=== PATIENT | male | born 1960 | race Caucasian/White ===

== ENCOUNTER 2019-02-01 19:31 | Inpatient (IN) | payer MEDICARE, OTHER ==
[~2019-02-01] VITALS: Ht 182.9 cm; Wt 73.1 kg
--- NOTE | 2019-02-01 19:38 | PHYS DOC ---
Past History Past Medical History: Anxiety, Bipolar, CHF, COPD, Depression, GERD, Hypertension Additional Past Surgical Histo: GI, left ankle Smoking: Non-smoker Alcohol Use: None Drug Use: None Adult General Chief Complaint Chief Complaint: RAPID HEART RATE HPI HPI Patient is a 58-year-old male with a past medical history of heart failure with an external defibrillator that is presenting to the emergency department via EMS for elevated heart rate. Patient states that he was alerted by his defibrillator that he was about to be shocked at home earlier today and he was feeling his palpitations increase. He denies any other complaints. He denies chest pain, SOB, fever, chills, cough, dizziness, and headache. Review of Systems Review of Systems Constitutional: Denies fever or chills Eyes: Denies redness or eye pain HENT: Denies nasal congestion or sore throat Respiratory: Denies cough or shortness of breath Cardiovascular: Denies chest pain, reports palpitations GI: Denies abdominal pain, nausea, or vomiting : Denies dysuria or hematuria Musculoskeletal: Denies back pain or joint pain Integument: Denies rash or skin lesions Neurologic: Denies headache, focal weakness or sensory changes Complete systems were reviewed and found to be within normal limits, except as documented in this note. Physical Exam Physical Exam Constitutional: Well developed, well nourished, no acute distress, non-toxic appearance HENT: Normocephalic, atraumatic, oropharynx moist Eyes: PERRL, EOMI, conjunctiva normal, no discharge Neck: Normal range of motion, no tenderness, supple Cardiovascular: Heart rate tachycardic, regular rhythm, external defibrillator in place. Lungs & Thorax: Bilateral breath sounds clear to auscultation, no wheezing Abdomen: Soft, no tenderness, exploratory laparoscopy scar present Skin: Warm, dry, no erythema, no rash Extremities: No tenderness, ROM intact, no edema Neurologic: Alert and oriented X 3, no focal deficits noted Psychologic: Affect normal, judgement normal EKG EKG EKG #1: SVT at 147BPM with no ST elevations EKG #2: SVT at 163BPM with no ST elevations Course & Med Decision Making Course & Med Decision Making Pertinent Labs reviewed. (See chart for details) Patient is a 58-year-old male with a past medical history of heart failure with an external defibrillator in place that is presenting to the emergency department via EMS for elevated heart rate. Patient was seen and evaluated at bedside. Labs ordered. Interrogation of the defibrillator was obtained from external defibrillator company. Interrogation shows elevated heart rates and SVT. Fluids given. Labs significant for magnesium of 0.8 and slightly elevated BNP. EKG showed SVT at 147 bpm. Repeat EKG shows the same at 163 bpm conducted an hour after the initial. Patient self converted down to 105bpm, Replacement of magnesium given. Patient requiring admission for further evaluation and treatment. Discussed with Dr. Santana (hospitalist) who is in agreement with admission. Discussed findings and plan with patient, who acknowledges understanding and agreement. Dragon Disclaimer Dragon Disclaimer This electronic medical record was generated, in whole or in part, using a voice recognition dictation system. Departure Departure: Impression: Primary Impression: SVT (supraventricular tachycardia) Additional Impression: Hypomagnesemia Disposition: ADMITTED INPATIENT Admitting Physician: Deanna Santana Condition: STABLE Problem Qualifiers NORI CHAN DO Feb 01, 2019 19:38
[2019-02-01] MEDS ORDERED: ASPIRIN 325 MG TABLET PO ONE (19:45)
[2019-02-01] MEDS ORDERED: IV NORMAL SALINE 1,000ML 1,000 ML IV ONE (19:45)
--- NOTE | 2019-02-01 19:47 | EKG ---
[address] [address] Test Date: 2019-02-01 Test Time: 19:40:30 Pat Name: ACOSTA PEDRO Department: Room: Gender: M Director Regulatory Compliance: : 1960 Requested By: NORI CHAN Order Number: [id number] Reading MD: Measurements Intervals [place] Rate: 147 P: -136 OK: 120 QRS: 23 QRSD: 82 T: 66 QT: 278 QTc: 441 Interpretive Statements SUPRAVENTRICULAR TACHYCARDIA T ABNORMALITY IN HIGH LATERAL LEADS ABNORMAL ECG RI6.01 No previous ECG available for comparison
[2019-02-01 20:24] LABS: CALCIUM 7.9 mg/dL (8.5-10.1); CREATININE 0.7 mg/dL (0.7-1.3); GFR 115.4; POTASSIUM 3.9 mmol/L (3.5-5.1)
[2019-02-01 20:38] LABS: BASO # 0.1 x10^3/uL (0.0-0.2); BASO % 1 % (0-3); EOS # 0.1 x10^3/uL (0.0-0.7); EOS % 1 % (0-3); HEMATOCRIT 39.8 % (39.0-53.0); HEMOGLOBIN 13.2 g/dL (13.0-17.5); LYMPH # 1.7 x10^3/uL (1.0-4.8); LYMPH % 20 % (24-48); MEAN CORPUSCULAR HEMOGLOBIN 28 pg (25-35); MEAN CORPUSCULAR HGB CONC 33 g/dL (31-37); MEAN CORPUSCULAR VOLUME 84 fL (79-100); MONO # 0.4 x10^3/uL (0.0-1.1); MONO % 5 % (0-9); NEUT # 6.2 x10^3uL (1.8-7.7); NEUT % 73 % (31-73); PLATELET COUNT 187 x10^3/uL (140-400); RED BLOOD COUNT 4.72 x10^6/uL (4.30-5.70); RED CELL DISTRIBUTION WIDTH 18.2 % (11.5-14.5); WHITE BLOOD COUNT 8.5 x10^3/uL (4.0-11.0)
[2019-02-01 20:40] LABS: ALBUMIN 3.6 g/dL (3.4-5.0); ALBUMIN/GLOBULIN RATIO 0.9 (1.0-1.7); MAGNESIUM 0.8 mg/dL (1.8-2.4); TOTAL BILIRUBIN 0.4 mg/dL (0.2-1.0); TOTAL PROTEIN 7.4 g/dL (6.4-8.2)
[2019-02-01 20:53] LABS: VAL ACID 13 mcg/mL (50-100)
[2019-02-01] MEDS ORDERED: MAGNESIUM SULFATE 2GM 50 ML IV ONE (21:15)
[2019-02-01 21:20] LABS: BARBITURATES NEG (NEG); BENZODIAZEPINES NEG (NEG); BILIRUBIN,URINE NEG (NEG); CANNABINOIDS NEG (NEG); CLARITY,URINE CLEAR; COCAINE NEG (NEG); COLOR,URINE YELLOW; GLUCOSE,URINE NEG (NEG); METHADONE NEG (NEG); OPIATES NEG (NEG); PHENCYCLIDINE NEG (NEG)
[2019-02-01 21:21] LABS: AMPHETAMINE/METHAMPHETAMINE NEG (NEG); BACTERIA,URINE 0 /HPF (0-FEW); NITRITE,URINE NEG (NEG); RBC,URINE OCC /HPF (0-2); SQUAMOUS EPITHELIAL CELL,UR OCC /LPF; UROBILINOGEN,URINE 0.2 mg/dL (0.2 mg/dL); WBC,URINE OCC /HPF (0-4)
[2019-02-01] MEDS ORDERED: ONDANSETRON PF 4 MG/2 ML VIAL. IV PRN (21:30)
[2019-02-01 23:16] VITALS: BP 97/65
--- NOTE | 2019-02-01 23:25 | EKG ---
[address] [address] Test Date: 2019-02-01 Test Time: 20:26:55 Pat Name: ACOSTA PEDRO Department: Room: Gender: M Supervisor Liquid Yeast: : 1960 Requested By: NORI CHAN Order Number: [id number] Reading MD: Measurements Intervals [place] Rate: 163 P: ND: QRS: 31 QRSD: 80 T: 79 QT: 294 QTc: 490 Interpretive Statements SUPRAVENTRICULAR TACHYCARDIA T ABNORMALITY IN HIGH LATERAL LEADS ABNORMAL ECG RI6.01 No previous ECG available for comparison
[2019-02-01] MEDS ORDERED: POTA20TA4 PO (23:44)
[2019-02-01] MEDS ORDERED: FURO40TA4 PO (23:44)
[2019-02-01] MEDS ORDERED: LATA2.5D3 EACHEYE (23:44)
[2019-02-01] MEDS ORDERED: ROPI3TAB4 PO (23:44)
[2019-02-01] MEDS ORDERED: PRAV80TA2 PO (23:44)
[2019-02-01] MEDS ORDERED: HYDR25SU18 RC (23:44)
[2019-02-01] MEDS ORDERED: OXYC5TAB4 PO (23:44)
[2019-02-01] MEDS ORDERED: ARIP10TA9 PO (23:44)
[2019-02-01] MEDS ORDERED: OMEP-229 PO (23:44)
[2019-02-01] MEDS ORDERED: DIPH25TA24 PO (23:44)
[2019-02-01] MEDS ORDERED: METH-38 PO (23:44)
[2019-02-01] MEDS ORDERED: PROAIR RESPICL90 MCG IH (23:44)
[2019-02-01] MEDS ORDERED: LORA-254 PO ×2 (23:44)
[2019-02-01] MEDS ORDERED: NICO4GUM42 BC (23:44)
[2019-02-01] MEDS ORDERED: MULT-496 PO (23:44)
[2019-02-01] MEDS ORDERED: LISI-338 PO (23:44)
[2019-02-01] MEDS ORDERED: TAMS0.4C97 PO (23:44)
[2019-02-01] MEDS ORDERED: SPIR25TA5 PO (23:44)
[2019-02-01] MEDS ORDERED: BISO5TAB4 PO (23:44)
[2019-02-01] MEDS ORDERED: [UNRECOGNIZED DRUG - CODE] PO (23:44)
[2019-02-01] MEDS ORDERED: NALO4SPR NS (23:44)
[2019-02-01] MEDS ORDERED: DIVA500T17 PO (23:44)
[2019-02-01] MEDS ORDERED: LIDO700A21 TP (23:44)
[2019-02-02 03:19] VITALS: BP 96/59
[2019-02-02] MEDS ORDERED: IV NORMAL SALINE 500ML 500 ML IV STA (07:06)
[2019-02-02] MEDS ORDERED: dilTIAZem VIAL 125 MG in IV DEXTROSE 5% 100 ML IV PRN (07:15)
[2019-02-02] MEDS ORDERED: DIGOXIN IV 500 MCG/2 ML AMPUL. IV ONE (07:45)
[2019-02-02 07:51] LABS: BASO % 1 % (0-3); EOS # 0.1 x10^3/uL (0.0-0.7); EOS % 2 % (0-3); HEMATOCRIT 36.7 % (39.0-53.0); HEMOGLOBIN 12.1 g/dL (13.0-17.5); LYMPH % 14 % (24-48); MEAN CORPUSCULAR HEMOGLOBIN 28 pg (25-35); MEAN CORPUSCULAR HGB CONC 33 g/dL (31-37); MEAN CORPUSCULAR VOLUME 84 fL (79-100); MONO # 0.4 x10^3/uL (0.0-1.1); MONO % 5 % (0-9); NEUT # 5.7 x10^3uL (1.8-7.7); NEUT % 79 % (31-73); PLATELET COUNT 184 x10^3/uL (140-400); RED BLOOD COUNT 4.36 x10^6/uL (4.30-5.70); RED CELL DISTRIBUTION WIDTH 18.2 % (11.5-14.5); WHITE BLOOD COUNT 7.2 x10^3/uL (4.0-11.0)
--- NOTE | 2019-02-02 07:55 | PDOC2 ---
CARDIAC CONSULT DATE OF CONSULT Date Of Consult DATE: 02/02/19 TIME: 07:53 REASON FOR CONSULT Reason for Consult SVT REFERRING PHYSICIAN Referring Physician Dr. Solo SOURCE Source: Chart review, Patient HPI History of Present Illness This is a 58 yo male who presented secondary to tachycardia and palpitations. Has a history of cardiomyopathy and currently has LifeVest which was placed about a month ago. Follows with [facility]; machine set up technician Dr. Sandoval. Last night was about to get into the bathtub. LifeVest alarm sounded and patient could tell his heart was beating fast. No associated chest pain, palpitation, dizziness, diaphoresis, or nausea/vomiting. Called [facility] who reported his device was alarming due to HR > 150 bmp. Was referred to the ED for further evaluation and treatment. Was noted in SVT upon arrival with HR. Was given IV fluid bolus. Mg level at 0.8 and was given 2Gm. Is somewhat of a poor historian. Reports baseline heart rate mildly elevated. Reports compliance with medications. Bisoprolol noted on med list, but patient thinks this may be been discontinued but is unsure. Reports his machine set up technician changed some of his medications recently. Reports having previous stress test at the [facility], but no cardiac catheterization although cath without intervention in listed in his medical history. Denies any recent fevers or illness. Has lasix PRN for fluid retention. Not some mild edema and had slight weight gain over the weekend so he took lasix 40mg BID x 2 days. His edema resolved and weight returned back to baseline. PAST MEDICAL HISTORY Cardiovascular: CHF, HTN, hyperipidemia Pulmonary: COPD GI: GERD Hepatobiliary: Hep A/B/C (C) Psych: Anxiety, Depression Renal/: Acute renal failure, Benign prostatic enlarg. PAST SURGICAL HISTORY Past Surgical History: Tonsillectomy, Colon Resection, Other (jaw surgery ) FAMILY HISTORY Family History: Coronary Artery Disease (father ) SOCIAL HISTORY Smoke: 1 pack per day ALCOHOL: none Drugs: None Lives: Alone CURRENT MEDICATIONS Current Medications Current Medications Aspirin (Camila Aspirin) 325 mg 1X ONCE PO Last administered on 02/01/19at 19:45; Start 02/01/19 at 19:45; Stop 02/01/19 at 20:24; Status DC Sodium Chloride 1,000 ml @ 1,000 mls/hr 1X ONCE IV Last administered on 02/01/19at 19:45; Start 02/01/19 at 19:45; Stop 02/01/19 at 20:44; Status DC Lorazepam (Ativan Inj) 0.5 mg 1X ONCE IVP Last administered on 02/01/19at 20:38; Start 02/01/19 at 20:45; Stop 02/01/19 at 20:46; Status DC Magnesium Sulfate 50 ml @ 25 mls/hr 1X ONCE IV Last administered on 02/01/19at 21:15; Start 02/01/19 at 21:15; Stop 02/01/19 at 23:14; Status DC Ondansetron HCl (Zofran) 4 mg PRN Q4HRS PRN IV NAUSEA/VOMITING; Start 02/01/19 at 21:30; Stop 02/02/19 at 21:29 Sodium Chloride 500 ml @ 0 mls/hr 1X STAT IV ; Start 02/02/19 at 07:06; Stop 02/02/19 at 07:25; Status DC Diltiazem HCl 125 mg/Dextrose 125 ml @ 0 mls/hr CONT PRN IV SEE I/O RECORD; Start 02/02/19 at 07:15 Digoxin (Lanoxin) 125 mcg 1X ONCE IV ; Start 02/02/19 at 07:45; Stop 02/02/19 at 07:46; Status DC Active Scripts Active Reported Proair Respiclick (Albuterol Sulfate) 90 Mcg Aer.pow.ba 2 Puff IH PRN Q6HRS PRN Klor-Con M20 (Potassium Chloride) 20 Meq Tab.er.prt 40 Meq PO DAILY08 Ativan (Lorazepam) 1 Mg Tablet 1 Mg PO HS Flomax (Tamsulosin Hcl) 0.4 Mg Cap.er.24h 0.4 Mg PO DAILY Spironolactone 25 Mg Tablet 25 Mg PO DAILY Ropinirole Hcl 3 Mg Tablet 3 Mg PO HS Pravastatin Sodium 80 Mg Tablet 80 Mg PO HS Oxycodone Hcl Immed.release (Oxycodone Hcl) 5 Mg Tablet 5 Mg PO PRN Q6HRS PRN Omeprazole 20 Mg Capsule.dr 20 Mg PO BIDACBL Glucerna 1.5 Travon Liquid (Nut.tx.gluc Intol,Lf,Soy/Fiber) 237 Ml Liquid 237 Ml PO BIDACBL Nicotine Gum (Nicotine Polacrilex) 4 Mg Gum 4 Mg BC PRN Q8HRS PRN Narcan (Naloxone HCl) 4 Mg Lavelle 4 Mg NS PRN DAILY PRN Daily Value (Multivitamin) 1 Each Tablet 1 Each PO DAILY Robaxin-750 (Methocarbamol) 750 Mg Tablet 750 Mg PO Q8HRS Ativan (Lorazepam) 1 Mg Tablet 1 Mg PO PRN DAILY PRN Lisinopril 5 Mg Tablet 5 Mg PO HS Lidocaine PATCH (Lidocaine) 1 Each Adh..patch 1 Each TP DAILY REMOVE AFTER 12 HOURS Latanoprost 2.5 Ml Drops 1 Drop EACHEYE QHS Anusol-Hc (Hydrocortisone Acetate) 25 Mg Supp.rect 25 Mg RC PRN BID PRN Furosemide 40 Mg Tablet 40 Mg PO BID92 Divalproex Sodium Er (Divalproex Sodium) 500 Mg Tab.er.24h 500 Mg PO HS Diphenhydramine Hcl 25 Mg Tablet 25 Mg PO PRN BID PRN Bisoprolol Fumarate 5 Mg Tablet 5 Mg PO DAILY Abilify (Aripiprazole) 10 Mg Tablet 10 Mg PO DAILY ALLERGIES Allergies: Coded Allergies: Penicillins (Verified Allergy, Unknown, 02/01/19) citalopram (Verified Allergy, Unknown, 02/01/19) lithium (Verified Allergy, Unknown, 02/01/19) simvastatin (Verified Allergy, Unknown, 02/01/19) ROS Review of Systems 14 point ROS conducte PHYSICAL EXAM General: Alert, Oriented X3, Cooperative, No acute distress HEENT: Atraumatic, Mucous membr. moist/pink Lungs: Clear to auscultation, Normal air movement Heart: Other (ST rate 130) Abdomen: Soft, No tenderness Extremities: No edema, Normal pulses Skin: No rashes, No breakdown Neuro: Sensation intact Psych/Mental Status: Mental status NL, Other (flat affect ) MUSCULOSKELETAL: Osteoarthritic changes both hands VITALS Vital Signs Vital Signs Date Time Temp Pulse Resp B/P (MAP) Pulse Ox O2 Delivery O2 Flow Rate FiO2 02/02/19 03:19 94 20 96/59 (71) 93 Room Air 02/01/19 23:16 97.3 01/31/19 23:45 2.0 LABS LABS Laboratory Tests Test 02/01/19 20:01 02/01/19 20:44 02/02/19 00:40 02/02/19 03:30 White Blood Count 8.5 x10^3/uL (4.0-11.0) Red Blood Count 4.72 x10^6/uL (4.30-5.70) Hemoglobin 13.2 g/dL (13.0-17.5) Hematocrit 39.8 % (39.0-53.0) Mean Corpuscular Volume 84 fL (79-100) Mean Corpuscular Hemoglobin 28 pg (25-35) Mean Corpuscular Hemoglobin Concent 33 g/dL (31-37) Red Cell Distribution Width 18.2 % (11.5-14.5) Platelet Count 187 x10^3/uL (140-400) Neutrophils (%) (Auto) 73 % (31-73) Lymphocytes (%) (Auto) 20 % (24-48) Monocytes (%) (Auto) 5 % (0-9) Eosinophils (%) (Auto) 1 % (0-3) Basophils (%) (Auto) 1 % (0-3) Neutrophils # (Auto) 6.2 x10^3uL (1.8-7.7) Lymphocytes # (Auto) 1.7 x10^3/uL (1.0-4.8) Monocytes # (Auto) 0.4 x10^3/uL (0.0-1.1) Eosinophils # (Auto) 0.1 x10^3/uL (0.0-0.7) Basophils # (Auto) 0.1 x10^3/uL (0.0-0.2) Prothrombin Time 11.0 SEC (9.4-11.4) Prothromb Time International Ratio 1.1 (0.9-1.1) Activated Partial Thromboplast Time 26 SEC (23-33) Sodium Level 136 mmol/L (136-145) Potassium Level 3.9 mmol/L (3.5-5.1) Chloride Level 99 mmol/L (98-107) Carbon Dioxide Level 30 mmol/L (21-32) Anion Gap 7 (6-14) Blood Urea Nitrogen 11 mg/dL (8-26) Creatinine 0.7 mg/dL (0.7-1.3) Estimated GFR (Cockcroft-Gault) 115.4 BUN/Creatinine Ratio 16 (6-20) Glucose Level 82 mg/dL (70-99) Calcium Level 7.9 mg/dL (8.5-10.1) Magnesium Level 0.8 mg/dL (1.8-2.4) Total Bilirubin 0.4 mg/dL (0.2-1.0) Aspartate Amino Transf (AST/SGOT) 21 U/L (15-37) Alanine Aminotransferase (ALT/SGPT) 28 U/L (16-63) Alkaline Phosphatase 103 U/L (46-116) Creatine Kinase 101 U/L (39-308) Creatine Kinase MB (Mass) 0.7 ng/mL (0.0-3.6) Creatine Kinase MB Relative Index 0.7 % (0-4) Troponin I Quantitative < 0.017 ng/mL (0-0.055) < 0.017 ng/mL (0-0.055) < 0.017 ng/mL (0-0.055) AG-Htq-S-Type Natriuretic Peptide 798 pg/mL (0-124) Total Protein 7.4 g/dL (6.4-8.2) Albumin 3.6 g/dL (3.4-5.0) Albumin/Globulin Ratio 0.9 (1.0-1.7) Lipase 84 U/L (73-393) Valproic Acid (Depakene) Level 13 mcg/mL (50-100) Valproic Acid Last Dose Date 12/26/10 Valproic Acid Last Dose Time 1111 Ethyl Alcohol Level < 10 mg/dL (0-10) Urine Collection Type Unknown Urine Color Yellow Urine Clarity Clear Urine pH 7.0 Urine Specific [place] 1.015 Urine Protein Neg (NEG-TRACE) Urine Glucose (UA) Neg mg/dL (NEG) Urine Ketones (Stick) Neg mg/dL (NEG) Urine Blood Neg (NEG) Urine Nitrite Neg (NEG) Urine Bilirubin Neg (NEG) Urine Urobilinogen Dipstick 0.2 mg/dL (0.2 mg/dL) Urine Leukocyte Esterase Neg (NEG) Urine RBC Occ /HPF (0-2) Urine WBC Occ /HPF (0-4) Urine Squamous Epithelial Cells Occ /LPF Urine Bacteria 0 /HPF (0-FEW) Urine Opiates Screen Neg (NEG) Urine Methadone Screen Neg (NEG) Urine Barbiturates Neg (NEG) Urine Phencyclidine Screen Neg (NEG) Urine Amphetamine/Methamphetamine Neg (NEG) Urine Benzodiazepines Screen Neg (NEG) Urine Cocaine Screen Neg (NEG) Urine Cannabinoids Screen Neg (NEG) Urine Ethyl Alcohol Neg (NEG) Ionized Calcium 1.02 mmol/L (1.13-1.32) Test 02/02/19 07:36 White Blood Count 7.2 x10^3/uL (4.0-11.0) Red Blood Count 4.36 x10^6/uL (4.30-5.70) Hemoglobin 12.1 g/dL (13.0-17.5) Hematocrit 36.7 % (39.0-53.0) Mean Corpuscular Volume 84 fL (79-100) Mean Corpuscular Hemoglobin 28 pg (25-35) Mean Corpuscular Hemoglobin Concent 33 g/dL (31-37) Red Cell Distribution Width 18.2 % (11.5-14.5) Platelet Count 184 x10^3/uL (140-400) Neutrophils (%) (Auto) 79 % (31-73) Lymphocytes (%) (Auto) 14 % (24-48) Monocytes (%) (Auto) 5 % (0-9) Eosinophils (%) (Auto) 2 % (0-3) Basophils (%) (Auto) 1 % (0-3) Neutrophils # (Auto) 5.7 x10^3uL (1.8-7.7) Lymphocytes # (Auto) 1.0 x10^3/uL (1.0-4.8) Monocytes # (Auto) 0.4 x10^3/uL (0.0-1.1) Eosinophils # (Auto) 0.1 x10^3/uL (0.0-0.7) Basophils # (Auto) 0.0 x10^3/uL (0.0-0.2) ASSESSMENT/PLAN Assessment/Plan 1. SVT; given fluid bolus in ED. 2. Cardiomyopathy. presumed NICM; with current LifeVest. Follows with Dr. Sandoval at the [facility]. 3. Chronic systolic CHF; appears compensated. Lasix PRN for fluid retention at home 4. Hypertension; BP low end. 5. Hyperlipidemia; statin 6. Hypomagnesemia; 0.8- replaced in ED 7. COPD with continued tobaccoism; discussed/encourage cessation 8. H/o hepatitis C Recommendations Dig IV x1 now Recheck Mg; replace as warranted TSH [facility] Cardizem not ideal with CMP. Will start low-dose metoprolol for rate control unless significant wheezing is noted Hold lisinopril for now with marginal BP Will attempt to clarify home med list Further recs pending review of OSH records and med list. MINERVA WILKINSON APRN Feb 02, 2019 07:55
--- NOTE | 2019-02-02 07:59 | RAD ---
CHEST AP ONLY History: Elevated heart rate, shortness of air Comparison: None. Findings: Single view of the chest is submitted. There is no dependent pleural fluid or pneumothorax. Heart size is considered within normal limits. There is no lobar consolidation. Impression: 1. No lobar infiltrate is identified. Electronically signed by: Sanju Anguiano MD (02/02/2019 7:56 AM) [id number]
[2019-02-02 08:14] LABS: ALBUMIN 2.9 g/dL (3.4-5.0); ALBUMIN/GLOBULIN RATIO 0.9 (1.0-1.7); CALCIUM 7.7 mg/dL (8.5-10.1); CREATININE 0.6 mg/dL (0.7-1.3); GFR 137.9; MAGNESIUM 1.4 mg/dL (1.8-2.4); POTASSIUM 3.5 mmol/L (3.5-5.1); TOTAL BILIRUBIN 0.4 mg/dL (0.2-1.0); TOTAL PROTEIN 6.2 g/dL (6.4-8.2)
[2019-02-02] MEDS ORDERED: MAGNESIUM SULFATE 2GM 50 ML IV ONE (08:30)
[2019-02-02] MEDS ORDERED: IPRATRPIUM/ALBUTEROL 0.5/2.5MG 3 ML NEBU. NEB ONE (08:45)
[2019-02-02] MEDS: METOPROLOL TART IMMED RELEASE 25 MG TABLET PO SCH ×3 (09:06→15:06)
[2019-02-02 11:00] VITALS: BP 104/64
[2019-02-02 12:00] VITALS: BP 116/71
[2019-02-02 14:03] VITALS: BP 109/74
[2019-02-02 14:16] LABS: MAGNESIUM 1.8 mg/dL (1.8-2.4); POTASSIUM 3.8 mmol/L (3.5-5.1)
[2019-02-02 14:54] VITALS: BP 115/78
[2019-02-02] MEDS ORDERED: HYDROCORTISONE ACETATE 25 MG SUPP.RECT RC PRN (17:30)
[2019-02-02] MEDS ORDERED: oxyCODONE IR 5 MG TABLET PO PRN (17:30)
[2019-02-02] MEDS ORDERED: NON FORMULARY ITEM (Naloxone HCl (Narcan) 4 MG) NS PRN (17:30)
[2019-02-02] MEDS ORDERED: LORazepam 1 MG TABLET PO PRN (17:30)
[2019-02-02] MEDS ORDERED: NON FORMULARY ITEM (Albuterol Sulfate (Proair Respiclick) 2 PUFF) IH PRN (17:30)
[2019-02-02] MEDS ORDERED: diphenhydrAMINE HCL 25 MG CAPSULE PO PRN (18:15)
[2019-02-02] MEDS ORDERED: NICOTINE POLACRILEX GUM 2 MG GUM. BC PRN (18:15)
[2019-02-02] MEDS ORDERED: ALBUTEROL SULFATE 2.5 MG/3 ML NEBU. NEB PRN (18:30)
[2019-02-02 19:00] VITALS: BP 122/87
[2019-02-02 19:01] LABS: FREE T4 1.28 ng/dL (0.76-1.46); THYROID STIM HORMONE (TSH) 0.383 uIU/mL (0.358-3.740)
--- NOTE | 2019-02-02 19:15 | HP ---
ADMIT DATE: 02/01/2019 HISTORY OF PRESENT ILLNESS: The patient is a 58-year-old male patient who presented to the emergency room with a complaint of tachycardia and palpitation, has a history of cardiomyopathy and currently has a LifeVest which was placed about a month ago, follows with his creative consultant, Dr. Sandoval, at the [facility]. He apparently went into his bathtub and LifeVest alarm sounded and the patient could tell his heart was beating fast. He denied any chest pain, palpitation, dizziness, lightheadedness, nausea or vomiting. He was advised to report to the emergency department for further evaluation and treatment. He was noted to be in SVT upon arrival with a heart rate in the 150, has received an IV bolus. His magnesium was extremely low at 0.8 and was given 2 grams and was admitted to the ICU. He stated that his heart rate at baseline elevated at 100-110. He stated that he has been compliant with all his medications. He has swelling of both legs for which he took his furosemide for 2 consecutive days and the swelling has gone down completely and apparently was treated with IV fluid and aspirin, received magnesium sulfate as well as diltiazem and digoxin and his heart rate has eventually slowed down. PAST MEDICAL HISTORY: Significant for hypertension; congestive heart failure; hyperlipidemia; chronic obstructive pulmonary disease; gastroesophageal reflux disease; hepatitis A, B and C; anxiety and depression; benign prostatic hypertrophy and history of acute renal failure. PAST SURGICAL HISTORY: Significant for tonsillectomy, colon resection with end-to-end anastomosis and jaw surgery. FAMILY HISTORY: Positive for coronary artery disease in his father. SOCIAL HISTORY: He is single, lives alone. He smokes a pack a day, does not drink alcohol or use any recreational drugs. ALLERGIES: He is allergic to PENICILLIN, CITALOPRAM, LITHIUM, and SIMVASTATIN. MEDICATIONS: He is currently on following medications: He is currently on diphenhydramine 25 mg twice a day, albuterol sulfate 2 puffs every 6 hours, tamsulosin 0.4 mg daily, methocarbamol 750 mg every 8 hours, nicotine gum 4 mg every 8 hours, pravastatin sodium 80 mg at bedtime, lisinopril 5 mg once a day, spironolactone 25 mg once a day, oxycodone 5 mg every 6 hours; naloxone for Narcan 4 mg nasal p.r.n. daily, avoid overdose; divalproex sodium 500 mg at bedtime. He is on Abilify 10 mg daily. He is on lorazepam 1 mg daily p.r.n. for anxiety, lorazepam 1 mg at bedtime. He is on Requip 3 mg at bedtime, potassium chloride for Klor-Con 40 mEq once a day. He is on Glucerna 1.5 Travon 237 mL p.o. b.i.d., furosemide 40 mg twice a day as needed, latanoprost 1 drop to both eyes at bedtime. He is on omeprazole 20 mg b.i.d. He is on hydrocortisone acetate 25 mg for Anusol rectally p.r.n. for hemorrhoidal discomfort, lidocaine patch applied topically once a day, multivitamin 1 tablet once a day. PHYSICAL EXAMINATION: GENERAL: On arrival to the emergency room, the patient was somewhat pale, but no jaundice, cyanosis or thyromegaly. No jugular venous distention. No limb edema. VITAL SIGNS: His heart rate was 157, blood pressure was 107/72, temperature was 98.4, respiratory rate was 18 and oxygen saturation was 97% on 2 liters of oxygen. HEAD, EYES, EARS, NOSE AND THROAT: Showed normocephalic, atraumatic. NECK: Supple. HEART: Showed normal first and second heart sounds. No gallop or murmur. CHEST: Clear to auscultation. No crepitation or rhonchi. ABDOMEN: Distended, soft, nontender. NEUROLOGIC: He is awake, alert, responding appropriately. All cranial nerves intact. EXTREMITIES: He moves extremities without difficulty, ambulates without assistance or assistive devices. LABORATORY DATA: His lab work showed a white cell count of 8500, hemoglobin 13, hematocrit 39, MCV 84 and platelet count of 187,000 with normal manual differential. His chemistry showed a serum sodium 136, potassium 3.9, chloride 99, bicarbonate 30, anion gap of 7, BUN 11, creatinine was 0.7, estimated GFR was 115 mL per minute. His glucose was 82, calcium was 7.9, magnesium was 0.8. Total bilirubin, AST, ALT, alkaline phosphatase were normal. CK was 101. Beta natriuretic peptide was 798. Total protein was 7.4, albumin 3.6. Lipase was 84. His prothrombin time, INR and aPTT are normal. Urinalysis essentially unremarkable and toxic screen was essentially negative. IMAGING STUDIES: His chest x-ray showed that single view of the chest is submitted, there is no dependent pleural fluid or pneumothorax, heart size is considered within normal limits. There is no lobar consolidation. ASSESSMENT AND PLAN: The patient was admitted with a diagnosis of supraventricular tachycardia and marked hypomagnesemia. He was treated with magnesium supplementation, intravenous fluid, Ativan as well as aspirin and digoxin and diltiazem drip. We did actually consult the creative consultant to assist with his management. MARLYN ALMAZAN MD DR: LB/kavya JOB#: [id number] / [id number]
[2019-02-02] MEDS ORDERED: ATORVASTATIN CALCIUM 20 MG TABLET PO SCH (21:00)
[2019-02-02] MEDS ORDERED: LATANOPROST 0.005% OPHTH SOLUTION 2.5ML BOTTLE. OU SCH (21:00)
[2019-02-02] MEDS ORDERED: LORazepam 1 MG TABLET PO SCH (21:00)
[2019-02-02] MEDS ORDERED: rOPINIRole 1 MG TABLET. PO SCH (21:00)
[2019-02-02] MEDS ORDERED: LISINOPRIL 5 MG TABLET. PO SCH (21:00)
[2019-02-02] MEDS ORDERED: DIVALPROEX ER 500 MG TAB.ER.24H PO SCH (21:00)
[2019-02-02] MEDS: METHOCARBAMOL 500 MG TABLET PO SCH (21:03)
--- NOTE | 2019-02-03 00:43 | PN ---
DATE: 02/02/2019 SUBJECTIVE: The patient was admitted yesterday with palpitations, tachycardia. The heart rate was 150-160. He was also found to have marked hypomagnesemia and was given magnesium sulfate, IV fluids and also started on a Cardizem drip and digoxin. His heart rate has slowed down. He also was started on metoprolol by the cork pressing machine operator. In fact when I saw him this afternoon, he was sitting on the edge of the bed, eating his dinner comfortably, in no apparent distress. He denied any chest pain, shortness of breath, orthopnea, paroxysmal nocturnal dyspnea. Denied any cough, phlegm or hemoptysis. OBJECTIVE: GENERAL: When I examined him, he was slightly pale, no jaundice or cyanosis. LYMPHATICS: No lymphadenopathy, no thyromegaly. No jugular venous distention. EXTREMITIES: No lower limb edema. VITAL SIGNS: His heart rate was 84, blood pressure was 115/78, temperature was 97.7, respiratory rate 24 and oxygen saturation was 92%. HEAD, EYES, EARS, NOSE AND THROAT: Showed normocephalic, atraumatic. NECK: Supple. HEART: Showed normal first and second heart sounds. No gallop or murmur. CHEST: Shows central trachea, equally reduced expansion, reduced air entry, vesicular sounds. I could not appreciate any crepitation or rhonchi. ABDOMEN: Scaphoid, soft, nontender. NEUROLOGIC: He was awake, alert, responding appropriately. All cranial nerves are intact. He moves extremities without difficulty. His intake and output were incompletely recorded. LABORATORY DATA: Showed a white cell count 7200, hemoglobin 12, hematocrit 36, MCV 84 and platelet count of 184,000. His chemistry showed that his serum sodium was 138, potassium 3.5, chloride 104, bicarbonate 28, anion gap of 6, BUN 8, creatinine 0.6, estimated GFR was 137 mL per minute, his glucose 115, calcium was 7.7, magnesium was 1.8. Total bilirubin, AST, ALT, alkaline phosphatase were normal. Total protein was 6.2, albumin 2.9. ASSESSMENT AND PLAN: 1. Supraventricular tachycardia, responding to treatment. The patient now is within normal sinus rhythm. 2. Severe hypomagnesemia, improved. His serum magnesium was 1.8. 3. Other medical problems include hypertension, this seems to be well controlled; hyperlipidemia; congestive heart failure due to nonischemic cardiomyopathy; chronic obstructive pulmonary disease; gastroesophageal reflux disease; and benign prostatic hypertrophy. We will repeat all his lab works and if he remains stable, he can be discharged home tomorrow. MARLYN ALMAZAN MD DR: LB/kavya JOB#: [id number] / [id number]
[2019-02-03] MEDS: METHOCARBAMOL 500 MG TABLET PO SCH (05:12)
[2019-02-03 07:00] VITALS: BP_SYST 102; BP_SYST 127; BP_DIAS 73; BP_DIAS 74
[2019-02-03 07:01] LABS: CALCIUM 8.3 mg/dL (8.5-10.1); CREATININE 0.6 mg/dL (0.7-1.3); GFR 137.9; MAGNESIUM 1.8 mg/dL (1.8-2.4); POTASSIUM 3.6 mmol/L (3.5-5.1)
[2019-02-03] MEDS ORDERED: NUT TX GLUC INTOL LF SOY PO SCH (07:30)
[2019-02-03] MEDS ORDERED: PANTOPRAZOLE 40 MG TABLET. PO SCH (07:30)
[2019-02-03] MEDS ORDERED: FIBER PO SCH (07:30)
[2019-02-03 08:00] VITALS: BP 119/76
[2019-02-03] MEDS ORDERED: ASPIRIN ENTERIC COATED 81 MG TABLET.DR. PO SCH (08:00)
[2019-02-03] MEDS ORDERED: POTASSIUM CHLORIDE 20 MEQ TABLET.ER. PO SCH (08:00)
[2019-02-03] MEDS: FUROSEMIDE 40 MG TABLET PO SCH ×2 (08:04→12:27)
[2019-02-03] MEDS ORDERED: ARIPiprazole 10 MG TABLET PO SCH (09:00)
[2019-02-03] MEDS ORDERED: METOPROLOL SUCC 24HR ER 50 MG TAB.ER.24H. PO SCH (09:00)
[2019-02-03] MEDS ORDERED: LIDOCAINE (700MG/PATCH) PATCH. TP SCH (09:00)
[2019-02-03] MEDS ORDERED: MULTIVITAMIN with MINERAL TABLET. PO SCH (09:00)
[2019-02-03] MEDS ORDERED: TAMSULOSIN 0.4 MG CAP.ER.24H. PO SCH (09:00)
[2019-02-03] MEDS ORDERED: SPIRONOLACTONE 25 MG TABLET PO SCH (09:00)
[2019-02-03 10:18] VITALS: BP 115/71
[2019-02-03 11:05] VITALS: BP 103/70
[2019-02-03] MEDS ORDERED: LISI2.5T PO (13:26)
[2019-02-03] MEDS ORDERED: SPIR25TA5 PO (13:26)
[2019-02-03] MEDS ORDERED: METO50TA29 PO (13:29)
[2019-02-03 13:38] VITALS: BP 113/70
--- NOTE | 2019-02-03 14:26 | DS ---
DATE OF DISCHARGE: HOSPITAL COURSE: The patient is a 58-year-old male patient who presented to the Emergency Room with a complaint of palpitation. He has LifeVest and apparently it has alarmed when his heart went up to 150. He did not complain of any chest pain or shortness of breath, cough, phlegm or hemoptysis. Denied any chills, rigors or fever. He was evaluated in the Emergency Room, was found to be in paroxysmal supraventricular tachycardia, treated initially with Lopressor at 25 mg. He was seen in consultation by the Cardiology team and he was started on metoprolol succinate. His heart rate reverted back to sinus rhythm at a heart rate in around 80 beats per minute and a decision was made to discharge him home to follow with his business office coordinator at the [facility]. When I examined him this afternoon, he was sitting at the edge of the bed comfortably in no apparent distress. Again, he denied any complaint. PHYSICAL EXAMINATION: GENERAL: On examining him, he was slightly pale, not jaundice, cyanosis or thyromegaly. No jugular venous distension. No limb edema. VITAL SIGNS: His heart rate was 79, blood pressure was 103/70, temperature was 97.7, respiratory rate was 23, and oxygen saturation was 91%. HEAD, EYES, EARS, NOSE AND THROAT: Showed normocephalic, atraumatic. NECK: Supple. HEART: Showed normal first and second heart sounds. No gallop or murmur. CHEST: Clear to auscultation. No crepitation or rhonchi. ABDOMEN: Scaphoid, soft, nontender. NEUROLOGIC: He is awake, alert, responding appropriately. All cranial nerves are intact. He moves extremities without difficulty, ambulates without assistance or assistive devices. His intake was 1115, output was recorded. LABORATORY DATA: His most recent lab work showed a white cell count 7200, hemoglobin 12, hematocrit 36, MCV 84 and platelet count of 184,000. His chemistry showed a serum sodium 137, potassium 3.6, chloride 102, bicarbonate 26, anion gap of 9, BUN 8, creatinine 0.6, estimated GFR was 137 mL per minute. His glucose was 95, calcium was 8.3, magnesium was 1.8. His total protein was 6.2, albumin was 2.9. Serum triglycerides were 73, total cholesterol 112, LDL cholesterol 54, VLDL was 14, and HDL cholesterol of 44, the ratio was 2. His TSH was 0.33, which is well within normal range. His free T4 and free T3 are both within normal range. DISCHARGE MEDICATIONS: He was discharged home to continue on lisinopril 2.5 mg once a day, spironolactone 12.5 mg once a day, albuterol sulfate 2 puffs every 6 hours, aripiprazole for Abilify 10 mg daily, diphenhydramine 25 mg p.o. b.i.d. p.r.n., divalproex 500 mg at bedtime, furosemide 40 mg twice a day as needed for fluid retention, hydrocortisone acetate for Anusol cream 25 mg suppository rectally as needed for hemorrhoidal discomfort, latanoprost 1 drop to both eyes at bedtime for glaucoma, Lidoderm patch applied topically daily on for 12 hours and off for 12 hours, lorazepam 1 mg daily p.r.n. for anxiety, lorazepam, Ativan 1 mg at bedtime, Robaxin 750 mg every 8 hours, multivitamin 1 tablet once a day, naloxone for Narcan 4 mg nasally p.r.n. daily and for opioid overdose, nicotine gum 4 mg every 8 hours as needed for smoking cessation. He is on Glucerna 1.5 calorie liquid 237 mL twice a day, omeprazole 20 mg twice a day, oxycodone immediate release 5 mg every 6 hours, potassium chloride 40 mEq daily, pravastatin 80 mg at bedtime, Requip 3 mg at bedtime and Flomax 0.4 mg at bedtime. FINAL DISCHARGE DIAGNOSES: 1. Supraventricular tachycardia, responded to treatment. The patient is now in normal sinus rhythm now on metoprolol succinate 50 mg once a day. 2. Severe hypomagnesemia, improved. His most recent serum magnesium was 1.8. 3. Other medical problems include: A. Hypertension. B. Hyperlipidemia. C. Congestive heart failure due to ischemic cardiomyopathy. D. Chronic obstructive pulmonary disease. E. Gastroesophageal reflux disease. F. Benign prostatic hypertrophy. The patient will be discharged home to follow with his primary business office coordinator at the [facility]. MARLYN ALMAZAN MD DR: LB/kavya JOB#: [id number] / [id number]
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
== END 2019-02-03 13:51 | disposition home or self-care (01) | DRG 309 ==
LOC: ER 19:31 → 1 SOUTH 21:20 → ICU 22:03
PROVIDERS: ADMIT Internal Medicine; ATTEND Internal Medicine
DX: I47.1 Supraventricular tachycardia (principal); I50.22 Chronic systolic (congestive) heart failure; I42.8 Other cardiomyopathies; E83.42 Hypomagnesemia; I25.5 Ischemic cardiomyopathy; I11.0 Hypertensive heart disease with heart failure; F41.9 Anxiety disorder, unspecified; J44.9 Chronic obstructive pulmonary disease, unspecified; K21.9 Gastro-esophageal reflux disease without esophagitis; F31.9 Bipolar disorder, unspecified; E78.5 Hyperlipidemia, unspecified; N40.0 Benign prostatic hyperplasia without lower urinary tract symptoms; F17.210 Nicotine dependence, cigarettes, uncomplicated; Z60.2 Problems related to living alone; Z88.0 Allergy status to penicillin; Z88.8 Allergy status to other drugs, medicaments and biological substances; Z82.49 Family history of ischemic heart disease and other diseases of the circulatory system
CPT/HCPCS: 36415; 71045; 80048; 80053; 80061; 80164; 80307; 81001; 82330; 82553; 83690; 83735; 83880; 84132; 84439; 84443; 84481; 84484; 85025; 85610; 85730; 93005; 94640; 96361; 96365; 96366; 96375; G0480; J1160; J2060; J3475; J7613; J7620; Q0163; 99285-25; J7030

== ENCOUNTER 2019-05-18 18:28 | Inpatient (IN) | payer MEDICARE, OTHER ==
[~2019-05-18] VITALS: Ht 182.9 cm; Wt 69.7 kg
[~2019-05-18 18:28] MED LIST: ARIP10TA9 PO; BISO5TAB8 PO; DIPH25TA24 PO; DIVA500T17 PO; FURO40TA4 PO; HYDR25SU18 RC; LATA2.5D3 EACHEYE; LIDO700A21 TP; LISI-338 PO; LISI2.5T PO; LORA-254 PO; METH-38 PO; METO50TA29 PO; MULT-496 PO; NALO4SPR NS; NICO4GUM42 PO; OMEP20CA16 PO; OXYC5TAB4 PO; POTA20TA4 PO; PRAV80TA2 PO; PROAIR RESPICL90 MCG IH; ROPI3TAB4 PO; SPIR25TA5 PO; TAMS0.4C97 PO; [UNRECOGNIZED DRUG - CODE] PO
[2019-05-18] MEDS ORDERED: IV RINGERS SOLUTION,LACTATED 1,000 ML IV SCH ×2 (18:35→20:00)
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
[2019-05-18] MEDS ORDERED: ASPIRIN CHEWABLE 81 MG TABLET. PO ONE (19:00)
--- NOTE | 2019-05-18 19:05 | RAD ---
Single view chest dated 05/18/2019. Comparison made to 02/02/2019. CLINICAL INDICATION: Dyspnea. FINDINGS: Single upright portable exam performed. Heart and mediastinal contours are stable. There is a dual lead left subclavian pacer/AICD in place with leads projected to the right atrium and right ventricle, new from prior study. Lungs are somewhat hyperinflated but otherwise clear. No consolidation or pleural effusion. No pneumothorax. IMPRESSION: No acute radiographic abnormality. Electronically signed by: Harsh Garza MD (05/18/2019 7:03 PM) [id number]
[2019-05-18] MEDS ORDERED: IPRATRPIUM/ALBUTEROL 0.5/2.5MG 3 ML NEBU. NEB ONE (19:15)
[2019-05-18] MEDS ORDERED: ACETAMINOPHEN 500 MG TABLET PO ONE (19:15)
[2019-05-18 19:19] LABS: BASO % 1 % (0-3); EOS % 1 % (0-3); HEMOGLOBIN 14.2 g/dL (13.0-17.5); LYMPH # 0.4 x10^3/uL (1.0-4.8); LYMPH % 10 % (24-48); MEAN CORPUSCULAR HEMOGLOBIN 32 pg (25-35); MEAN CORPUSCULAR HGB CONC 34 g/dL (31-37); MEAN CORPUSCULAR VOLUME 94 fL (79-100); MONO % 1 % (0-9); NEUT # 3.6 x10^3uL (1.8-7.7); NEUT % 88 % (31-73); PLATELET COUNT 138 x10^3/uL (140-400); RED BLOOD COUNT 4.48 x10^6/uL (4.30-5.70); RED CELL DISTRIBUTION WIDTH 14.4 % (11.5-14.5); WHITE BLOOD COUNT 4.1 x10^3/uL (4.0-11.0)
[2019-05-18 19:36] LABS: CALCIUM 8.7 mg/dL (8.5-10.1); CREATININE 0.9 mg/dL (0.7-1.3); GFR 86.4; POTASSIUM 4.3 mmol/L (3.5-5.1)
[2019-05-18 19:46] LABS: INFLUENZA A PATIENT NEGATIVE (NEGATIVE); INFLUENZA B PATIENT NEGATIVE (NEGATIVE)
[2019-05-18 19:49] LABS: DIRECT BILIRUBIN 0.1 mg/dL (0.0-0.2); MAGNESIUM 1.1 mg/dL (1.8-2.4); TOTAL BILIRUBIN 0.5 mg/dL (0.2-1.0); TOTAL PROTEIN 7.5 g/dL (6.4-8.2)
[2019-05-18] MEDS ORDERED: IPRATRPIUM/ALBUTEROL 0.5/2.5MG 3 ML NEBU. NEB SCH (20:00)
[2019-05-18] MEDS ORDERED: ONDANSETRON PF 4 MG/2 ML VIAL. IVP PRN (20:00)
[2019-05-18 20:32] LABS: BARBITURATES NEG (NEG); BENZODIAZEPINES NEG (NEG); CANNABINOIDS NEG (NEG); COCAINE NEG (NEG); METHADONE NEG (NEG); OPIATES POS (NEG); PHENCYCLIDINE NEG (NEG)
[2019-05-18 20:35] LABS: AMPHETAMINE/METHAMPHETAMINE NEG (NEG)
[2019-05-18] MEDS ORDERED: MAGNESIUM SULFATE 2GM 50 ML IV ONE (20:45)
[2019-05-18 21:11] LABS: CLARITY,URINE TURBID; COLOR,URINE RED
[2019-05-18 21:12] LABS: BACTERIA,URINE 0 /HPF (0-FEW); RBC,URINE TNTC /HPF (0-2)
[2019-05-18] MEDS ORDERED: CONTRAST GIVEN MC PRN (22:30)
[2019-05-18] MEDS ORDERED: IOHEXOL 350 MG/ML 100 ML VIAL. IV ONE (22:45)
[2019-05-18] MEDS ORDERED: ENOXAPARIN ** NOTE DOSE ** SYRINGE SQ SCH (23:00)
--- NOTE | 2019-05-18 23:28 | RAD ---
INDICATION: Dyspnea and elevated d-dimer COMPARISON: Chest x-ray from January 2019. TECHNIQUE: Axial CT images obtained through the chest. Intravenous contrast utilized. Angiogram 3D images processed per protocol. One or more of the following individualized dose reduction techniques were utilized for this examination: 1. Automated exposure control; 2. Adjustment of the mA and/or kV according to patient size; 3. Use of iterative reconstruction technique. FINDINGS: No evidence of pneumothorax. Couple nodules at right lung apex measuring up to 4 mm. Scattered calcific atherosclerosis. Coronary artery calcific atherosclerosis. No evidence of thoracic aortic aneurysm. Degenerative changes of spine. No embolus in the main, right main or left main pulmonary artery. Pacemaker leads. There are some regions of low density in some of the more peripheral pulmonary arteries. IMPRESSION: No embolus in the main, right main or left main pulmonary artery. There is some regions of low density at more peripheral pulmonary arteries but there is a large amount of artifact and not optimal contrast bolus timing. These regions of low density could be artifactual in nature but this exam is inadequate to exclude a more peripheral embolus. There are couple pulmonary nodules measuring up to about 4 mm. Fleischner Society recommendations for solitary solid lung nodule follow up.: In a low risk patient: <6mm - No follow up required. 6-8mm - 6-[address], then CT at 18-24 months. >8mm - CT at 3 months, PET/CT or tissue sampling. In a high risk patient (history of smoking or other known risk factors): <6mm - Follow up CT at 12 months. 6-8mm - 6-[address], then CT at 18-24 months. >8mm - CT at 3 months, PET/CT or tissue sampling. Fleischner Society recommendations for multiple solid lung nodule follow up.: In a low risk patient: <6mm - No follow up required. 6-8mm - 3-[address], then CT at 18-24 months. >8mm - CT at 3-6 months, then at 18-24 months. PET/CT or tissue sampling based on most suspicious nodule. In a high risk patient (history of smoking or other known risk factors): <6mm - Follow up CT at 12 months. 6-8mm - 3-[address], then CT at 18-24 months. >8mm - CT at 3-6 months, PET/CT or tissue sampling option based on most suspicious nodule. Electronically signed by: Demetrius Farnsworth MD (05/18/2019 11:25 PM) [id number]
[2019-05-18] MEDS ORDERED: ALBUTEROL SULFATE 8GM INHALER. INH PRN (23:30)
--- NOTE | 2019-05-18 23:32 | EKG ---
[address] [address] Test Date: 2019-05-18 Test Time: 18:58:36 Pat Name: ACOSTA PEDRO Department: Room: ICU03 1 Gender: M Engineering Executive: : 1960 Requested By: MAURICIO PANIAGUA Order Number: [id number] Reading MD: Placido Sands MD Measurements Intervals Freedom Rate: 122 P: -35 NH: 130 QRS: 31 QRSD: 78 T: 74 QT: 266 QTc: 380 Interpretive Statements SINUS TACHYCARDIA Electronically Signed On 05-19-2019 10:27:55 CDT by Placido Sands MD
[2019-05-19] VITALS (8 sets, daily range): BP systolic 106–133; BP diastolic 69–77
[2019-05-19] MEDS ORDERED: METO200T46 PO (05:01)
[2019-05-19] MEDS ORDERED: MELA3TAB4 PO (05:01)
[2019-05-19] MEDS ORDERED: ZINC57OI TP (05:01)
[2019-05-19] MEDS ORDERED: ACET325T21 PO (05:01)
[2019-05-19] MEDS ORDERED: POLY17PO5 PO (05:01)
[2019-05-19] MEDS ORDERED: LATA7.5D OP (05:01)
[2019-05-19] MEDS ORDERED: CETI10TA16 PO (05:01)
[2019-05-19] MEDS ORDERED: ALBU0.63 NEB (05:01)
[2019-05-19] MEDS ORDERED: LISI-334 PO (05:01)
[2019-05-19] MEDS ORDERED: ASPI81TA50 PO (05:01)
[2019-05-19 06:09] LABS: BASO % 0 % (0-3); EOS % 0 % (0-3); HEMATOCRIT 36.5 % (39.0-53.0); HEMOGLOBIN 12.4 g/dL (13.0-17.5); LYMPH # 0.4 x10^3/uL (1.0-4.8); LYMPH % 3 % (24-48); MEAN CORPUSCULAR HEMOGLOBIN 31 pg (25-35); MEAN CORPUSCULAR HGB CONC 34 g/dL (31-37); MEAN CORPUSCULAR VOLUME 92 fL (79-100); MONO # 0.3 x10^3/uL (0.0-1.1); MONO % 2 % (0-9); NEUT # 11.6 x10^3uL (1.8-7.7); NEUT % 94 % (31-73); PLATELET COUNT 105 x10^3/uL (140-400); RED BLOOD COUNT 3.95 x10^6/uL (4.30-5.70); RED CELL DISTRIBUTION WIDTH 14.3 % (11.5-14.5); WHITE BLOOD COUNT 12.3 x10^3/uL (4.0-11.0)
[2019-05-19] MEDS: ACETAMINOPHEN 325 MG TABLET PO PRN ×2 (06:11→12:15)
[2019-05-19 06:50] LABS: CALCIUM 8.3 mg/dL (8.5-10.1); CREATININE 0.7 mg/dL (0.7-1.3); GFR 115.4; POTASSIUM 3.3 mmol/L (3.5-5.1)
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
[2019-05-19] MEDS: ALBUTEROL SULFATE 2.5 MG/3 ML NEBU. NEB PRN (12:15)
[2019-05-19] MEDS: oxyCODONE IR 5 MG TABLET PO PRN ×2 (16:35→22:04)
[2019-05-19] MEDS: LACTOBACILLUS RHAMNOSUS GG 1 CAPSULE. PO SCH (20:27)
[2019-05-20] VITALS (7 sets, daily range): BP systolic 108–139; BP diastolic 62–90
[2019-05-20] MEDS: oxyCODONE IR 5 MG TABLET PO PRN ×3 (05:17→18:05)
[2019-05-20] MEDS: LACTOBACILLUS RHAMNOSUS GG 1 CAPSULE. PO SCH ×2 (08:45→20:06)
--- NOTE | 2019-05-20 13:10 | PN ---
DATE: 05/20/2019 ATTENDING PHYSICIAN: Juanita Mclaughlin MD SUBJECTIVE: The patient is feeling better. He has some chronic myalgia and pains, but he denied any chest pain, dyspnea, fevers, chills, or rigors. He tells me he had a prostate biopsy by Dr. Miranda earlier this past week. Two blood cultures have come back positive for gram-negative rods. The ID and sensitivity will not be available until tomorrow. I suspect the culprit would be E. coli related to his prostate biopsy. OBJECTIVE FINDINGS: VITAL SIGNS: His temperature today is earlier 100.5 degrees repeated, 6 hours later was down to 98.6 degrees Fahrenheit. Oxygen saturation is adequate. Blood pressure is 126/77, pulse is 82 and regular. HEENT: Head is without trauma. Pupils are reactive. Sclerae nonicteric. Oropharynx is clear. NECK: Supple, no bruits identified. LUNGS: Otherwise clear. CARDIOVASCULAR: Showed regular heart tones. No gallops. ABDOMEN: Soft, scaphoid, nontender, no organomegaly. Bowel sounds are hypoactive. EXTREMITIES: Showed no cyanosis or edema. NEUROLOGIC FINDINGS: Focally intact. Speech is fluent. No deficit. PERTINENT LABORATORY STUDIES: Two of 4 blood cultures are indeed positive for gram-negative rods. I suspect likely culprit will be E. coli. Hemoglobin is 12.4 g with white count of 12,300. Electrolytes showed a sodium of 143, potassium 3.3 mEq. BNP is 4700. ASSESSMENT: 1. A 58-year-old gentleman with recent prostate biopsy. He presented with fevers, chills and rigors. He has gram-negative septicemia. 2. Positive blood cultures related to recent prostate biopsy. 3. Nonischemic cardiomyopathy with elevated BNP. 4. Chronic obstructive pulmonary disease with continued tobacco use. PLAN: 1. Keep in current ICU. 2. He had a COVID-19 swab that is still pending. 3. Continue Rocephin with the addition of Levaquin. 4. Await microbiology identification and sensitivity growing organism in blood. 5. Diet as tolerated. 6. Earliest time of discharge to be stable would be Wednesday. I explained this in detail to him. He will need most likely 10-14 days of antibiotic therapy. JUANITA MCLAUGHLIN MD DR: JENIFER/kavya JOB#: [id number] / [id number]
[2019-05-20] MEDS: ALBUTEROL SULFATE 2.5 MG/3 ML NEBU. NEB PRN (18:45)
[2019-05-20] MEDS: LORazepam 1 MG TABLET PO PRN (20:06)
[2019-05-21] VITALS (7 sets, daily range): BP systolic 121–156; BP diastolic 75–87
[2019-05-21] MEDS: oxyCODONE IR 5 MG TABLET PO PRN ×4 (01:08→20:07)
[2019-05-21] MEDS: LACTOBACILLUS RHAMNOSUS GG 1 CAPSULE. PO SCH ×2 (08:00→20:07)
--- NOTE | 2019-05-21 10:42 | PN ---
DATE: 05/21/2019 ATTENDING PHYSICIAN: Dr. Mclaughlin. SUBJECTIVE: No new complaints. His pain is under control. He denied any dyspnea. No fevers or chills. The positive blood cultures were sent out to a reference lab. The results of the identification and sensitivity are still pending as of Wednesday morning. OBJECTIVE FINDINGS: VITAL SIGNS: His blood pressure today is 149/83, pulse was down to 88 and regular. He is afebrile. Oxygen saturation 93% on room air. We were aware that his COVID-19 swab came back negative last evening. HEENT: Head is without trauma. Pupils are reactive. Sclerae are nonicteric. Oropharynx is clear. NECK: Supple, no bruits identified. LUNGS: Good breath sounds. CARDIOVASCULAR: Showed regular heart tones. No obvious gallops. Peripheral pulses palpable and full. ABDOMEN: Soft, scaphoid, nontender. EXTREMITIES: Show no cyanosis or edema. NEUROLOGIC: Focally intact. No deficit. ASSESSMENT: 1. A 58-year-old gentleman with recent prostate biopsy. He presented with fever and chills. He has gram-negative septicemia. 2. Nonischemic cardiomyopathy with elevated BNP, compensated. 3. Chronic obstructive pulmonary disease with continued tobacco use, stable. PLAN: 1. We can move him out of the ICU as he is COVID-19 negative. 2. Continue Rocephin and Levaquin as ordered, pending sensitivity. 3. Await microbiology identification and sensitivity of the organism growing in his blood. 4. Diet as tolerated. 5. Tentative discharge plans to go home tomorrow. I will try to arrange for transportation. He has limited sources and funds. [facility]. JUANITA MCLAUGHLIN MD DR: JENIFER/kvaya JOB#: [id number] / [id number]
[2019-05-21] MEDS: METOPROLOL SUCC 24HR ER 50 MG TAB.ER.24H. PO SCH (11:33)
[2019-05-21] MEDS: ALBUTEROL SULFATE 2.5 MG/3 ML NEBU. NEB PRN (20:07)
[2019-05-21] MEDS: LORazepam 1 MG TABLET PO PRN (21:32)
[2019-05-22] MEDS: oxyCODONE IR 5 MG TABLET PO PRN ×2 (02:45→08:22)
[2019-05-22 04:58] VITALS: BP 126/80
[2019-05-22 08:17] VITALS: BP 126/80
[2019-05-22] MEDS: LACTOBACILLUS RHAMNOSUS GG 1 CAPSULE. PO SCH (08:17)
[2019-05-22] MEDS: METOPROLOL SUCC 24HR ER 50 MG TAB.ER.24H. PO SCH (08:17)
--- NOTE | 2019-05-22 10:15 | DS ---
DATE OF DISCHARGE: 05/22/2019 ATTENDING PHYSICIAN: Dr. Mclaughlin FINAL DISCHARGE DIAGNOSES: 1. Gram-negative bacteremia. 2. Chronic obstructive pulmonary disease. 3. Recent prostate biopsy. 4. Fevers, resolved. 5. Chronic respiratory failure. 6. Exacerbation of chronic obstructive pulmonary disease. 7. History of nonischemic cardiomyopathy. 8. Bipolar disorder. 9. Gastroesophageal reflux disease. HISTORY OF PRESENT ILLNESS: The patient is a 58-year-old gentleman, [place] patient, with several medical issues. About 4 days prior to coming in, he had a prostate biopsy done by the [place] urologist. Since that time, he has had fevers, chills and some respiratory symptoms. He was diverted here from the [place]. The obligatory CT of the chest ruled out pulmonary embolus. No source of emboli. A solitary 4 mm pulmonary nodule was identified. No acute infiltrate was identified. A COVID-19 test was ordered. He was admitted for further treatment and evaluation. Blood cultures were drawn. We followed up with empiric antibiotic therapy and COVID-19 treatment. PHYSICAL EXAMINATION: Please see the dictated note. PERTINENT LABORATORY AND X-RAY STUDIES: He had 2/4 blood cultures grow out positive for gram-negative rods. This was sent to [facility] for further identification and sensitivity. Unfortunately, they were still pending at the time of discharge. His hemoglobin was maintained at 14.2 g/dL, white count was 12,300. Chemistry panel showed stable creatinine of 0.7, potassium 3.3 mEq, no symptoms. BNP was 4700. COURSE IN THE HOSPITAL: The patient was admitted to the unit COVID-19 swabs were negative. He was moved out of the unit. We treated him empirically with intravenous Rocephin and the addition of Levaquin. He did well. By the fifth hospital day, he was on the floor. He did not require any supplemental oxygen. His blood pressure was stable. He was afebrile. He was ready for discharge. I recommended 7 more days of Vantin 200 mg b.i.d. and Levaquin 500 mg daily for 7 more days. We shall follow up with his blood culture results and call if any changes need to be made, our infection nurse will update that with him. His other home meds are unchanged. The patient should continue his oxycodone p.r.n. pain, Ativan p.r.n., albuterol, Flomax, Robaxin, Pravachol, metoprolol 200 mg daily, aspirin and Aldactone as prescribed. He was discharged then from our hospital in stable condition with explicit followup care with his PCP. Prescriptions were given. Instructions were given explicitly. We also got him a ride to get him back home. TOTAL DISCHARGE TIME SPENT: 42 minutes. JUANITA MCLAUGHLIN MD DR: JENIFER/kavya JOB#: [id number] / [id number] [place], [place]
== END 2019-05-22 11:20 | disposition home health service (06) | DRG 871 ==
LOC: ER 18:28 → ICU 19:00 → 1 SOUTH 05-21 11:54
PROVIDERS: ADMIT Hospitalist; ATTEND Hospitalist
DX: A41.50 Gram-negative sepsis, unspecified (principal); J96.20 Acute and chronic respiratory failure, unspecified whether with hypoxia or hypercapnia; I42.8 Other cardiomyopathies; J44.1 Chronic obstructive pulmonary disease with (acute) exacerbation; D69.6 Thrombocytopenia, unspecified; E83.42 Hypomagnesemia; E86.0 Dehydration; F31.9 Bipolar disorder, unspecified; F41.1 Generalized anxiety disorder; I11.0 Hypertensive heart disease with heart failure; I50.9 Heart failure, unspecified; F41.8 Other specified anxiety disorders; K21.9 Gastro-esophageal reflux disease without esophagitis; F17.210 Nicotine dependence, cigarettes, uncomplicated; Z95.0 Presence of cardiac pacemaker; Z79.899 Other long term (current) drug therapy; Z88.0 Allergy status to penicillin; Z88.8 Allergy status to other drugs, medicaments and biological substances; Z03.818 Encounter for observation for suspected exposure to other biological agents ruled out
CPT/HCPCS: 36415; 71045; 71275; 80048; 80076; 80307; 81001; 82550; 83605; 83690; 83735; 83880; 84443; 84484; 85025; 85379; 85610; 85730; 87040; 87070; 87077; 87086; 87186; 87205; 87635; 87804; 87880; 93005; 94640; 96361; 96365; 99406; J0696; J1956; J3475; J7120; Q9967; 99285-25; J7613